=== PATIENT | male | born 1990 | race Caucasian/White ===

== ENCOUNTER 2023-10-24 10:10 | Emergency (ER) | payer MEDICAID, OTHER ==
[~2023-10-24] VITALS: Ht 190.5 cm; Wt 90.7 kg
[2023-10-24] MEDS ORDERED: KETOROLAC TROMETHAMINE 60 MG INJ IM ONE ×2 (10:45→10:55)
[2023-10-24] MEDS ORDERED: DIAZEPAM 2 MG TABLET PO ONE (10:45)
[2023-10-24] MEDS ORDERED: HYDROCODONE/APAP 10-325 MG TABLET PO ONE (10:45)
[2023-10-24] MEDS ORDERED: DIAZEPAM 2 MG TABLET ONE (10:56)
[2023-10-24] MEDS ORDERED: HYDROCODONE/APAP 10-325 MG TABLET ONE (10:56)
[2023-10-24] MEDS ORDERED: HYDR-3980 PO (12:05)
[2023-10-24] MEDS ORDERED: DIAZ2TAB PO (12:05)
[2023-10-24 12:23] VITALS: BP 132/77; O2SAT 99
== END 2023-10-24 12:23 | disposition home or self-care (01) ==
LOC: ER 10:10
DX: M54.50 Low back pain, unspecified (principal); Z79.899 Other long term (current) drug therapy
CPT/HCPCS: 99283; 96372; J1885; A4606; A4663